=== PATIENT | male | born 1965 | race Caucasian/White ===

== ENCOUNTER 2021-08-21 14:17 | Emergency (ER) | payer SELFPAY ==
[2021-08-21] MEDS ORDERED: NA CHLORIDE 0.9% 1,000 ML ONE (15:13)
[2021-08-21 15:15] LABS: Absolute Lymphocytes (CBC) 1.6 K/uL (0.7-4.9); Hematocrit 26.2 % (39.6-49.0); Lymphocytes % 7.2 % (15.3-44.8); MPV 9.5 fL (7.6-11.3); RBC Red Blood Cell Count 2.72 M/uL (4.33-5.43)
--- NOTE | 2021-08-21 15:34 | RAD REPORT ---
EXAM DESCRIPTION: CTAbdomen Pelvis W Contrast - 08/21/2021 3:11 pm CLINICAL HISTORY: Abdominal pain. ABD PAIN COMPARISON: No comparisons TECHNIQUE: Biphasic CT imaging of the abdomen and pelvis was performed with 100 ml non-ionic IV cont rast. All CT scans are performed using dose optimization technique as appropriate and may include automated exposure control or mA/KV adjustment according to patient size. FINDINGS: Small right pleural effusion is noted. A large subcapsular fluid collection is seen involving the right lobe of the liver measuring 14.1 x 6 .1 cm. Multiloculated fluid collection along greater curvature of the stomach is present measuring 6. 7 x 6.8 cm. Small air subcapsular fluid collection along the anterior left lobe liver measures 5.4 x 3.8 cm. Fluid collection in the left upper quadrant adjacent to the spleen which is also large in siz e present measuring 10.4 x 7.8 cm. A amorphous fluid density collection is also present surrounding the mid transverse colon measuring 6 .9 x 4.9 cm. This narrows the lumen of the transverse colon moderately. There is thrombosis of the right portal vein extending into the main portal vein present. The pancrea tic tail and body demonstrates mild dilatation of the pancreatic duct. Rounded 16 mm cystic lesion is seen in the pancreatic neck. Additional cystic lesion is present in the uncinate process of the panc reas measuring 17 x 16 mm. Cholelithiasis is identified. The adrenal glands and kidneys show no acute finding. Mild free fluid is seen along both pericolic gutters with mild fluid also present in the pelvis. No bowel obstruction or free air. Nonvisualized appendix. No evidence of significant lymphadenopathy. No lytic or blastic bone lesion. Mild lumbar degenerative changes. IMPRESSION: Multiple, large, loculated fluid collections in the upper abdomen nonspecific but may be related to multiple pancreatic pseudocysts. Advise correlation with pancreatitis history. Cystic lesions seen within the pancreatic parenchyma as detailed may represent smaller pancreatic pse udocyst or cystic masses/neoplastic lesions. Follow-up MRI of the pancreas may be helpful for further evaluation. Portal vein thrombosis is present involving the right intrahepatic portal venous system extending int o the main portal vein. Cholelithiasis.
[2021-08-21 15:35] LABS: Albumin 1.2 g/dL (3.4-5.0); Potassium 3.7 mmol/L (3.5-5.1)
--- NOTE | 2021-08-21 15:36 | RAD REPORT ---
EXAM DESCRIPTION: CT - Thorax Wo Con CLINICAL HISTORY: Chest pain generalized weakness COMPARISON: <Comparisons> FINDINGS: Linear atelectasis is present in the right lung base. No pulmonary nodule, mass or infiltr ate is seen. Small to moderate right pleural effusion. No pneumothorax. No axillary, mediastinal or hilar adenopathy. Sclerosis and arthritic changes are present involving the left sternoclavicular joint. All CT scans are performed using dose optimization technique as appropriate and may include automated exposure control or mA/KV adjustment according to patient size. IMPRESSION: Right pleural effusion, small to moderate.
[2021-08-21 15:41] LABS: Bilirubin Direct 0.3 mg/dL (0-0.2); Bilirubin Total 0.5 mg/dL (0.2-1.0); Protein, Total 6.5 g/dL (6.4-8.2)
[2021-08-21 15:52] LABS: SARS-COV-2 RT PCR NEGATIVE (NEGATIVE)
--- NOTE | 2021-08-21 16:20 | EDPHYS ---
Physician Documentation [facility] Name: Brooks Abdul Age: 56 yrs Sex: Male : 1965 Arrival Date: 08/21/2021 Time: 14:27 Bed 20 Private MD: ED Physician Zach Walton HPI: 08/21 14:39 This 56 yrs old Male presents to ER via EMS with complaints of Abdominal pain. pm1 14:39 The patient presents with abdominal pain in the right upper quadrant, right lower pm1 quadrant. Onset: The symptoms/episode began/occurred 2 month(s) ago. The symptoms do not radiate. Associated signs and symptoms: Pertinent positives: diarrhea, decreased appetite, Pertinent negatives: nausea and vomiting, chest pain, dysuria, fever, shortness of breath. The symptoms are described as crampy. Modifying factors: the symptoms are aggravated by movement and side lying position. Severity of pain: in the emergency department the pain is unchanged. The patient has not experienced similar symptoms in the past. The patient has not recently seen a physician, Had blood work in June at onset of symptoms and was told that he had normal labs except for elevated liver enzymes. Reports 40 pound weight lose since the beginning of June. 1/2 per day smoker. 2-3 beers per day, 5-6 on special occasions. Has not drank alcohol since June. Historical: - Allergies: 14:50 No Known Allergies; [facility] - Home Meds: 14:50 None [Active]; [facility] - Immunization history:: Adult Immunizations up to date, Client reports receiving the 2nd dose of the Covid vaccine. - Social history:: Smoking status: Patient reports the use of cigarette tobacco products, denies chronic smoking, but will smoke occasionally. ROS: 14:39 Cardiovascular: Negative for chest pain, palpitations, and edema, Respiratory: Negative pm1 for shortness of breath, cough, wheezing, and pleuritic chest pain. 14:39 Back: Negative for injury and pain, : Negative for injury, bleeding, discharge, and swelling, MS/Extremity: Negative for injury and deformity, Skin: Negative for injury, rash, and discoloration, Neuro: Negative for headache, weakness, numbness, tingling, and seizure. 14:39 Constitutional: Positive for fatigue, poor PO intake, weight loss, Negative for fever. 14:39 Abdomen/GI: Positive for abdominal pain, diarrhea, of the right upper quadrant and right lower quadrant, Negative for nausea and vomiting, black/tarry stool. 14:39 All other systems are negative. Exam: 14:39 Head/Face: Normocephalic, atraumatic. pm1 14:39 Back: No spinal tenderness. No costovertebral tenderness. Full range of motion. 14:39 Constitutional: The patient appears in no acute distress, alert, awake, non-diaphoretic, non-toxic, well groomed, frail, obviously ill, pale. 14:39 Eyes: Exam is negative for acute changes, Periorbital structures: appear normal, Extraocular movements: no acute changes, Sclera: no acute changes, icterus, is not appreciated. 14:39 ENT: Exam is negative for acute changes, Mouth: no acute changes, Lips: normal, moist, Oral mucosa: normal, pink and intact, moist. 14:39 Cardiovascular: Exam negative for acute changes, Rate: normal, Rhythm: regular, Pulses: no pulse deficits are appreciated, Heart sounds: normal, Edema: is not appreciated. 14:39 Respiratory: Exam negative for acute changes, shortness of breath, the patient does not display signs of respiratory distress, Respirations: normal, no acute changes, Breath sounds: decreased breath sounds, that are mild, are heard in the right posterior lower lobe. 14:39 Skin: Appearance: normal except for affected area, Color: pale. 14:39 Neuro: Exam negative for acute changes, Orientation: is normal, Mentation: is normal, Motor: is normal, moves all fours. 16:03 Abdomen/GI: Rectal exam: rectal tone normal, Stool: brown, guaiac positive, tenderness, pm1 is not appreciated, Nicolasa JEFFREY. Vital Signs: 14:46 BP 102 / 71; Pulse 90; Resp 20; Temp 98.6(O); Pulse Ox 97% on R/A; Weight 58.97 kg; jh6 Height 5 ft. 11 in. (180.34 cm); Pain 4/10; 16:30 BP 102 / 74; Pulse 108; Resp 24; Pulse Ox 97% on R/A; ss 16:42 BP 102 / 74; Pulse 108; Resp 25; Pulse Ox 97% on R/A; dh3 14:46 Body Mass Index 18.13 (58.97 kg, 180.34 cm) [facility] MDM: 14:27 Patient medically screened. pm1 16:03 Data reviewed: vital signs. Data interpreted: Pulse oximetry: on room air is 97 %. pm1 Interpretation:. Counseling: I had a detailed discussion with the patient and/or guardian regarding: the historical points, exam findings, and any diagnostic results supporting the discharge/admit diagnosis, lab results, radiology results, the need to transfer to another facility, [facility] does not immediately have the required specialist. 16:03 ED course: No GI available until 08/29/21. pm1 16:41 Physician consultation: MD Bow[facility] regarding regarding transfer, patient's condition, pm1 and will see patient Patient transferred due to lack of GI availability. 08/21 14:30 Order name: Basic Metabolic Panel; Complete Time: 15:45 pm1 08/21 14:30 Order name: CBC with Diff pm1 08/21 14:30 Order name: Hepatic Function; Complete Time: 15:45 pm1 08/21 14:30 Order name: Lipase; Complete Time: 15:45 pm1 08/21 14:30 Order name: COVID-19/FLU A+B (Document "Date of Onset" if Symptomatic); Complete Time: pm1 16:09 08/21 14:30 Order name: IV Saline Lock; Complete Time: 14:46 pm1 08/21 14:30 Order name: Labs collected and sent; Complete Time: 14:46 pm1 08/21 14:30 Order name: EKG; Complete Time: 14:31 pm1 08/21 14:30 Order name: EKG - Nurse/Tech; Complete Time: 14:38 pm1 08/21 14:30 Order name: CT Abd/Pelvis - IV Contrast Only; Complete Time: 15:37 pm1 08/21 15:12 Order name: CT Chest Wo Con; Complete Time: 15:37 pm1 08/21 14:30 Order name: Urine Dipstick-Ancillary (obtain specimen) pm1 Administered Medications: 15:24 Drug: NS 0.9% 1000 ml Route: IV; Rate: 1000 ml; Site: right antecubital; [facility] Disposition: 18:42 Co-signature as Attending Physician, Zach Walton MD I agree with the assessment and rn plan of care. Attestation: The patient's history, exam findings, diagnostics, and a summary of any interventions or procedures was reviewed in detail with John Paige NP. Disposition Summary: 08/21/21 16:20 Transfer Ordered Transfer Location: Other Acute Care Facility pm1 Reason: Specialty pm1 Condition: Stable pm1 Problem: new pm1 Symptoms: are unchanged pm1 Accepting Physician: (08/21/21 17:27) jh6 Diagnosis - Other acute pancreatitis without necrosis or infection pm1 - Pancreatic cancer pm1 - Portal vein thrombosis pm1 Forms: - Medication Reconciliation Form pm1 - SBAR form pm1 Signatures: Dispatcher [employer] EDMS Zach Walton MD MD rn Marinas, Patrick, NP LEVEL VIAL MARKER pm1 Nicolasa Eric RN RN jh6 Corrections: (The following items were deleted from the chart) 17:27 16:20 MD olivares jh6
--- NOTE | 2021-08-21 16:20 | ER ---
Nurse's Notes [facility] Name: Brooks Abdul Age: 56 yrs Sex: Male : 1965 Arrival Date: 08/21/2021 Time: 14:27 Bed 20 Private MD: Diagnosis: Other acute pancreatitis without necrosis or infection;Pancreatic cancer;Portal vein thrombosis Presentation: 08/21 14:46 Chief complaint: EMS states: Having generalized weakness and RUQ abd pain x 2-3wks. [facility] Coronavirus screen: Vaccine status: Patient reports receiving the 2nd dose of the covid vaccine. Ebola Screen: Patient negative for fever greater than or equal to 101.5 degrees Fahrenheit, and additional compatible Ebola Virus Disease symptoms Patient denies travel to an Ebola-affected area in the 21 days before illness onset. Initial Sepsis Screen: Does the patient meet any 2 criteria? No. Patient's initial sepsis screen is negative. Does the patient have a suspected source of infection? No. Patient's initial sepsis screen is negative. Risk Assessment: Do you want to hurt yourself or someone else? Patient reports no desire to harm self or others. 14:46 Method Of Arrival: EMS: [place] [id number] 14:46 Acuity: MK 3 [facility] Historical: - Allergies: 14:50 No Known Allergies; [facility] - Home Meds: 14:50 None [Active]; [facility] - Immunization history:: Adult Immunizations up to date, Client reports receiving the 2nd dose of the Covid vaccine. - Social history:: Smoking status: Patient reports the use of cigarette tobacco products, denies chronic smoking, but will smoke occasionally. Screenin:57 Abuse screen: Denies threats or abuse. Nutritional screening: No deficits noted. [facility] Tuberculosis screening: No symptoms or risk factors identified. Fall Risk None identified. Assessment: 14:52 General: Appears slender, unkempt, emaciated, malnourished, Behavior is calm, [facility] cooperative. Pain: Complains of pain in right upper quadrant Pain currently is 7 out of 10 on a pain scale. Quality of pain is described as aching, gnawing. Vital Signs: 14:46 BP 102 / 71; Pulse 90; Resp 20; Temp 98.6(O); Pulse Ox 97% on R/A; Weight 58.97 kg; jh6 Height 5 ft. 11 in. (180.34 cm); Pain 4/10; 16:30 BP 102 / 74; Pulse 108; Resp 24; Pulse Ox 97% on R/A; ss 16:42 BP 102 / 74; Pulse 108; Resp 25; Pulse Ox 97% on R/A; 3 14:46 Body Mass Index 18.13 (58.97 kg, 180.34 cm) [facility] ED Course: 14:27 Patient arrived in ED. eb 14:27 John Paige NP is PHCP. pm1 14:27 Zach Walton MD is Attending Physician. pm1 14:38 EKG done, by ED staff, reviewed by John Paige NP. em1 14:46 Nicolasa Eric RN is Primary Nurse. 6 14:50 Triage completed. 6 14:50 Arm band placed on right wrist. 6 14:59 Placed in gown. Bed in low position. Call light in reach. Side rails up X 1. 6 15:[address] via stretcher. 6 15:10 CT Abd/Pelvis - IV Contrast Only In Process Unspecified. EDMS 15:19 CT Chest Wo Con In Process Unspecified. EDMS 16:10 initiated a transfer with Mer from the [facility] transfer center. eb 16:24 connected the ED doctor optical effects line up person for [facility] with John Estrada for patient transfer eb consultation. 16:30 administrative approval given by. Dr. Bowie/ Dr. Bowie has accepted the patient eb in transfer/ report to be called to [phone]. 17:27 Served as a waste picker during rectal exam. [facility] Administered Medications: 15:24 Drug: NS 0.9% 1000 ml Route: IV; Rate: 1000 ml; Site: right antecubital; [facility] Outcome: 16:20 ER care complete, transfer ordered by . pm1 17:26 Transferred by ground EMS to other acute care facility: [facility]. [facility] 17:26 Condition: stable 17:26 Instructed on the need for transfer. 17:27 Patient left the ED. [facility] Signatures: Dispatcher [employer] EDMS Raad Camacho em1 Nhi Black RN RN ss John Paige NP ETCHER MACHINE pm1 Donna Aviles 3 Mickie Kong Jennifer, RN RN jh6
[2021-08-21 17:33] VITALS: TEMP 98.6; O2SAT 97
[2021-08-21 17:35] VITALS: BP 102/74
[2021-08-21 18:37] LABS: White Blood Cell Scan OK (OK)
[2021-08-21 18:38] LABS: Anisocytosis 2+; Blood Morphology Comment NOTED (NOT SEEN); Platelet Estimate INCR; Poikilocytosis 1+
--- NOTE | 2021-08-22 11:32 | EKG ---
Test Date: 2021-08-21 Test Time: 14:33:50 Events Manager: DON MEASUREMENT RESULTS: Intervals: Rate: 114 IN: 104 QRSD: 90 QT: 464 QTc: 639 [place]: P: 8 IN: 104 QRS: 47 T: -1 INTERPRETIVE STATEMENTS: Sinus tachycardia with short IN Possible Anterior infarct, age undetermined ST & T wave abnormality, consider lateral ischemia Prolonged QT Abnormal ECG No previous ECG available for comparison Electronically Signed On 08-22-21 11:30:30 RETAIL SALES DIRECTOR by Lizandro Darden
== END 2021-08-21 17:27 ==
LOC: ER 14:17
DX: K85.80 Other acute pancreatitis without necrosis or infection (principal); I81 Portal vein thrombosis; C25.9 Malignant neoplasm of pancreas, unspecified; Z20.822 Contact with and (suspected) exposure to COVID-19
CPT/HCPCS: 0240U; 36415; 71250; 74177; 80048; 80076; 82565; 83690; 85025; 93005; 99285; J7030; Q9967